=== PATIENT | female | born 1945 | race Caucasian/White ===

== ENCOUNTER → 2016-12-17 | Outpatient (CLI) | payer BC, MEDICARE ==
--- NOTE | 2016-12-17 13:00 | RAD ---
Left forearm radiographs History: Fall previous day. Comparison: None. Findings: AP and lateral views of the left forearm. There is diffuse soft tissue swelling of the visualized left upper extremity. Better seen on the frontal view, there is a transversely oriented fracture involving the distal radial metaphysis, presumably acute. This appears to spare the distal radioulnar joint. Impression: Acute distal radial fracture. Better evaluation could be made with a dedicated 3 view radiographs of the wrist.
== END | disposition home or self-care (01) ==
LOC: DXRAD 11:25
PROVIDERS: ATTEND Family Medicine
DX: S52.502A Unspecified fracture of the lower end of left radius, initial encounter for closed fracture (principal); W19.XXXA Unspecified fall, initial encounter; Y93.89 Activity, other specified; Y92.89 Other specified places as the place of occurrence of the external cause; Y99.8 Other external cause status
CPT/HCPCS: 73090

== ENCOUNTER → 2016-12-18 | Outpatient (CLI) | payer BC, MEDICARE ==
--- NOTE | 2016-12-18 13:15 | RAD ---
Left wrist, 3 views, 12/18/2016: History: Fall, injury Comparison is made to yesterday's wrist radiographs. There is a mildly impacted fracture of the distal radius. No significant displacement or angulation is evident. The articular surface of the distal radius shows no definite involvement. A small ulnar styloid fracture is present. The carpal bones are unremarkable. There is moderate diffuse soft tissue swelling about the wrist. IMPRESSION: 1. Mildly impacted acute fracture of the distal left radius. 2. Tiny ulnar styloid fracture.
== END | disposition home or self-care (01) ==
LOC: DXRAD 10:17
PROVIDERS: ATTEND Family Medicine
DX: S52.502A Unspecified fracture of the lower end of left radius, initial encounter for closed fracture (principal); S52.612A Displaced fracture of left ulna styloid process, initial encounter for closed fracture; X58.XXXA Exposure to other specified factors, initial encounter; Y93.89 Activity, other specified; Y92.89 Other specified places as the place of occurrence of the external cause; Y99.8 Other external cause status
CPT/HCPCS: 73110

== ENCOUNTER → 2016-12-24 | Outpatient (CLI) | payer BC, MEDICARE ==
--- NOTE | 2016-12-24 10:59 | RAD ---
Left wrist, 3 views, 12/24/2016: History: Follow-up wrist fracture Comparison is made to a study from 12/18/2016. There is an impacted fracture of the distal radius which is unchanged in position. A small ulnar styloid fracture is again noted. The carpal bones are intact. There is moderate soft tissue swelling about the wrist. Left forearm, 2 views, 12/24/2016: No additional fracture or bony abnormality is detected. IMPRESSION: Stable distal radial fracture.
== END | disposition home or self-care (01) ==
LOC: RAD 10:22
PROVIDERS: ATTEND Family Medicine
DX: S62.102D Fracture of unspecified carpal bone, left wrist, subsequent encounter for fracture with routine healing (principal); S52.92XD Unspecified fracture of left forearm, subsequent encounter for closed fracture with routine healing; X58.XXXD Exposure to other specified factors, subsequent encounter
CPT/HCPCS: 73090; 73110

== ENCOUNTER → 2017-01-14 | Outpatient (CLI) | payer BC, MEDICARE ==
--- NOTE | 2017-01-14 11:31 | RAD ---
Left wrist, 3 views, 01/14/2017: History: Wrist pain, follow-up fracture Comparison is made to a study from 12/24/2016. The impacted fracture of the distal left radius is unchanged in position. The fracture lines are still clearly visible. There is mild patchy bony demineralization. A small ulnar styloid fracture is again noted. The carpal bones are intact. There is moderate soft tissue swelling about the wrist. IMPRESSION: Stable distal radial fracture.
== END | disposition home or self-care (01) ==
LOC: DXRAD 11:09
PROVIDERS: ATTEND Family Medicine
DX: S52.502D Unspecified fracture of the lower end of left radius, subsequent encounter for closed fracture with routine healing (principal); X58.XXXD Exposure to other specified factors, subsequent encounter
CPT/HCPCS: 73110

== ENCOUNTER → 2017-02-09 | Outpatient (CLI) | payer BC, MEDICARE ==
--- NOTE | 2017-02-09 11:35 | RAD ---
Examination: 3 views of the left wrist History: History of fracture. Comparison: 01/14/2017 Findings: Mild displaced distal radius metadiaphysis fracture again identified.. There is more sclerotic changes identified at the site of fracture likely ongoing healing changes. A small ulnar styloid fracture is is unchanged. The carpal bones are well aligned. Degenerative changes identified in the first carpometacarpal joint. Impression: Mild displaced distal radius metadiaphysis fracture again identified with minimal increase in sclerotic changes at the fracture site likely ongoing healing changes. Fracture lucency is still visible.
== END | disposition home or self-care (01) ==
LOC: DXRAD 10:11
PROVIDERS: ATTEND Family Medicine
DX: S52.502D Unspecified fracture of the lower end of left radius, subsequent encounter for closed fracture with routine healing (principal); X58.XXXD Exposure to other specified factors, subsequent encounter
CPT/HCPCS: 73110